=== PATIENT | male | born 1935 | race Two or more races ===

== ENCOUNTER 2020-03-11 15:30 | Inpatient (IN) | payer SELFPAY ==
[2020-03-11] VITALS: BP 129/65
[~2020-03-11] VITALS: Ht 165.1 cm; Wt 44.9 kg
[2020-03-11 15:36] VITALS: BP 117/80
--- NOTE | 2020-03-11 15:37 | Emergency Room Report ---
History of Present Illness General Chief Complaint: Syncope Source: EMS Present Illness HPI Disclaimer: Please note that this report is being documented using [employer] technology. This can lead to erroneous entry secondary to incorrect interpretation by the dictating instrument. HPI: 85-year-old male with unknown medical history presents for evaluation after syncopal episode. He arrives by EMS. History is limited as the person who witnessed the syncope was not on scene to provide information. Patient was reportedly found by first responders on the ground confused and hypotensive. He improved and mental status is now seemingly at baseline. He is able to tell me his name, age, location accurately. He states he does not take any medications has no complaints at this time. He denies headache, chest pain, palpitations, abdominal pain, recent vomiting, diarrhea fever chills or other changes in his health. He does not remember what happened today. He does not see a doctor regularly. PMH: Denies PSH: Denies Allergies: Denies Social Hx: Denies Allergies: Coded Allergies: No Known Allergies (Unverified , 03/11/20) COVID-19 Screening Contact w/high risk pt: No Experienced COVID-19 symptoms?: No COVID-19 Testing performed [employer]: No Nursing Documentation-PMH Past Medical History: No Stated History Review of Systems All Other Systems: negative except mentioned in HPI Physical Exam Vital Signs Date Time Temp Pulse Resp B/P (MAP) Pulse Ox O2 Delivery O2 Flow Rate FiO2 03/11/20 15:26 98.8 56 16 133/64 (87) 97 Room Air General: Awake and alert, no acute distress HEENT: NC/AT. No scalp or face hematomas, lacerations or abrasions. EOMI. visual acuity decreased bilaterally. Cardiovascular: Bradycardic. S1 and S2 normal. No murmur appreciated Resp: Normal work of breathing. No cough, wheezing or crackles appreciated Abdomen: Abdomen is soft, nondistended. Nontender Skin: Intact. No abrasions, laceration or rash over the exposed skin MSK: Normal tone and bulk. Moving all extremities. No obvious deformity. Neuro: Awake and alert. Mentating appropriately. Medical Decision Making Diagnostic Impression: Primary Impression: Syncope Additional Impressions: Anemia Hyperglycemia ER Course 85-year-old male with no reported medical history presents after a apparent syncopal episode at home. Differential also includes seizure, orthostatic hypotension, dehydration, ACS, arrhythmia, symptomatic bradycardia, head injury among others. EKG on arrival shows normal sinus rhythm without evidence of acute ischemia. He was initially bradycardic but this has improved. Pressures have been stable since arrival. Mentation returned to baseline. No injury identified on CT scan of the head. Chest x-ray shows normal cardiac silhouette no obvious infiltrate. Labs otherwise have returned within normal limits aside from anemia and elevation in blood glucose. She will be admitted for syncope work-up. Admitted to panel physician, Dr. Deng. Laboratory Tests Test 03/11/20 15:40 03/11/20 17:05 White Blood Count 7.2 K/UL (4.8-10.8) Red Blood Count 3.12 M/UL (4.70-6.10) L Hemoglobin 8.6 G/DL (14.2-18.0) L Hematocrit 27.1 % (42.0-52.0) L Mean Corpuscular Volume 87 FL (80-99) Mean Corpuscular Hemoglobin 27.7 PG (27.0-31.0) Mean Corpuscular Hemoglobin Concent 31.9 G/DL (32.0-36.0) L Red Cell Distribution Width 15.9 % (11.6-14.8) H Platelet Count 262 K/UL (150-450) Mean Platelet Volume 6.2 FL (6.5-10.1) L Neutrophils (%) (Auto) 72.7 % (45.0-75.0) Lymphocytes (%) (Auto) 20.7 % (20.0-45.0) Monocytes (%) (Auto) 4.6 % (1.0-10.0) Eosinophils (%) (Auto) 1.2 % (0.0-3.0) Basophils (%) (Auto) 0.8 % (0.0-2.0) Prothrombin Time 10.7 SEC (9.30-11.50) Prothrombin Time INR 1.0 (0.9-1.1) Activated Partial Thromboplast Time 21 SEC (23-33) L D-Dimer 0.48 mg/L FEU (0.00-0.49) Sodium Level 138 MMOL/L (136-145) Potassium Level 3.5 MMOL/L (3.5-5.1) Chloride Level 105 MMOL/L (98-107) Carbon Dioxide Level 25 MMOL/L (21-32) Anion Gap 8 mmol/L (5-15) Blood Urea Nitrogen 29 mg/dL (7-18) H Creatinine 1.1 MG/DL (0.55-1.30) Estimated Glomerular Filtration Rate > 60 mL/min (>60) Glucose Level 250 MG/DL (74-106) H Calcium Level 8.3 MG/DL (8.5-10.1) L Total Bilirubin 0.2 MG/DL (0.2-1.0) Aspartate Amino Transferase (AST) 23 U/L (15-37) Alanine Aminotransferase (ALT) 17 U/L (12-78) Alkaline Phosphatase 76 U/L (46-116) Total Creatine Kinase 133 U/L (26-308) Creatine Kinase MB 3.9 NG/ML (0.0-3.6) H Creatine Kinase MB Relative Index 2.9 Troponin I 0.008 ng/mL (0.000-0.056) Pro-B-Type Natriuretic Peptide 282 pg/mL (0-125) H Total Protein 6.4 G/DL (6.4-8.2) Albumin 2.9 G/DL (3.4-5.0) L Globulin 3.5 g/dL Albumin/Globulin Ratio 0.8 (1.0-2.7) L Lipase 100 U/L (73-393) Urine Color Pale yellow Urine Appearance Clear Urine pH 5 (4.5-8.0) Urine Specific [place] 1.020 (1.005-1.035) Urine Protein Negative (NEGATIVE) Urine Glucose (UA) 1+ (NEGATIVE) H Urine Ketones Negative (NEGATIVE) Urine Blood 2+ (NEGATIVE) H Urine Nitrite Negative (NEGATIVE) Urine Bilirubin Negative (NEGATIVE) Urine Urobilinogen Normal MG/DL (0.0-1.0) Urine Leukocyte Esterase Negative (NEGATIVE) Urine RBC 10-15 /HPF (0 - 0) H Urine WBC 0 /HPF (0 - 0) Urine Squamous Epithelial Cells Occasional /LPF Urine Bacteria Occasional /HPF (NONE) Urine Opiates Screen Negative (NEGATIVE) Urine Barbiturates Screen Negative (NEGATIVE) Phencyclidine (PCP) Screen Negative (NEGATIVE) Urine Amphetamines Screen Negative (NEGATIVE) Urine Benzodiazepines Screen Negative (NEGATIVE) Urine Cocaine Screen Negative (NEGATIVE) Urine Marijuana (THC) Screen Negative (NEGATIVE) EKG Diagnostic Results Troponin ordered: Yes When was troponin ordered?: Mar 11, 2020 EKG Time: 16:11 Rate: normal Rhythm: NSR ST Segments: no acute changes Other Impression Sinus rhythm, normal axis, normal intervals, no ST segment changes. Rhythm Strip Diag. Results Rhythm Strip Time: 16:11 EP Interpretation: yes Rate: 60s Rhythm: NSR, no PVC's, no ectopy Chest X-Ray Diagnostic Results Chest X-Ray Diagnostic Results : Chest X-Ray Ordered: Yes # of Views/Limited/Complete: 1 View Indication: Other - Syncope EP Interpretation: Yes Interpretation: no consolidation, no effusion, no pneumothorax, no acute cardiopulmonary disease Impression: No acute disease Electronically Signed by: Electronically signed by Dr. Jacek Calix MD Last Vital Signs Date Time Temp Pulse Resp B/P (MAP) Pulse Ox O2 Delivery O2 Flow Rate FiO2 03/11/20 15:26 98.8 56 16 133/64 (87) 97 Room Air Disposition: ADMITTED INPATIENT Condition: Stable Jacek Calix MD Mar 11, 2020 15:36
--- NOTE | 2020-03-11 16:34 | Diagnostic Imaging Report ---
Indications: Altered mental status Technique: Spiral acquisitions obtained through the brain. Angled axial and coronal 5 x 5 mm slices were reconstructed. Total dose length product 1018 mGycm. CTDI vol(s) 53 mGy. Dose reduction achieved using automated exposure control Comparison: None. Findings: No acute intracranial hemorrhage or edema, mass effect, nor midline shift. There is age-related enlargement of the ventricles and extra axial CSF spaces. There is periventricular deep white matter low-attenuation, consistent with chronic microvascular ischemic change. Unremarkable sinuses, mastoids, calvarium, orbits Impression: Chronic and age-related changes. Negative for acute intracranial bleed or mass effect The CT scanner at [facility] is accredited by the [employer] and the scans are performed using protocols designed to limit radiation exposure to as low as reasonably achievable to attain images of sufficient resolution adequate for diagnostic evaluation.
[2020-03-11 16:39] LABS: BASOPHILS % (AUTO) 0.8 % (0.0-2.0); EOSINOPHILS % (AUTO) 1.2 % (0.0-3.0); HEMATOCRIT 27.1 % (42.0-52.0); HEMOGLOBIN 8.6 G/DL (14.2-18.0); LYMPHOCYTES % (AUTO) 20.7 % (20.0-45.0); MEAN CORPUSCULAR VOLUME 87 FL (80-99); MONOCYTES % (AUTO) 4.6 % (1.0-10.0); NEUTROPHILS % (AUTO) 72.7 % (45.0-75.0); PLATELET COUNT 262 K/UL (150-450); RED BLOOD COUNT 3.12 M/UL (4.70-6.10); RED CELL DISTRIBUTION WIDTH 15.9 % (11.6-14.8); WHITE BLOOD COUNT 7.2 K/UL (4.8-10.8)
[2020-03-11 16:53] LABS: ANION GAP 8 mmol/L (5-15); BLOOD UREA NITROGEN 29 mg/dL (7-18); CALCIUM 8.3 MG/DL (8.5-10.1); CARBON DIOXIDE 25 MMOL/L (21-32); CHLORIDE 105 MMOL/L (98-107); CREATININE 1.1 MG/DL (0.55-1.30); POTASSIUM 3.5 MMOL/L (3.5-5.1); SODIUM 138 MMOL/L (136-145)
[2020-03-11 17:06] LABS: ALANINE AMINOTRANSFERASE 17 U/L (12-78); ALBUMIN 2.9 G/DL (3.4-5.0); ALBUMIN/GLOBULIN RATIO 0.8 (1.0-2.7); ALKALINE PHOSPHATASE 76 U/L (46-116); ASPARTATE AMINO TRANSFERASE 23 U/L (15-37); BILIRUBIN,TOTAL 0.2 MG/DL (0.2-1.0); CKMB 3.9 NG/ML (0.0-3.6); CREATINE KINASE 133 U/L (26-308)
[2020-03-11 17:30] VITALS: BP 129/84
[2020-03-11 18:09] LABS: APPEARANCE,URINE CLEAR; BILIRUBIN, URINE NEGATIVE (NEGATIVE); COLOR,URINE PALE YELLOW; GLUCOSE, URINE (UA) 1+ (NEGATIVE); KETONES,URINE NEGATIVE (NEGATIVE); LEUKOCYTE ESTERASE ,URINE NEGATIVE (NEGATIVE); NITRITE,URINE NEGATIVE (NEGATIVE); PH,URINE 5 (4.5-8.0); PROTEIN,URINE NEGATIVE (NEGATIVE); UROBILINOGEN,URINE NORMAL MG/DL (0.0-1.0)
--- NOTE | 2020-03-11 19:13 | Diagnostic Imaging Report ---
Indication: Chest pain Technique: One view of the chest Comparison: none Findings: Lungs and pleural spaces are clear. Heart size is normal. Impression: No acute process
[2020-03-11 19:25] VITALS: BP 192/80
[2020-03-11] MEDS ORDERED: LORazepam Inj 2mg/ml 1ml IV ONE (19:45)
[2020-03-11] MEDS ORDERED: LORazepam Inj 2mg/ml 1ml IV PRN (20:30)
[2020-03-11] MEDS ORDERED: NS w/KCl 20mEq 1000ml 1,000 ML IV SCH (22:00)
[2020-03-12] VITALS: BP 129/65
--- NOTE | 2020-03-12 03:00 | History and Physical Report ---
DATE OF ADMISSION: 03/11/2020 REASON FOR ADMISSION: Syncope. HISTORY OF PRESENT ILLNESS: This 85-year-old male, with no prior medical history known, was brought in by paramedics. He apparently had a witnessed syncopal episode in the field. He was found by first responders on the ground with confusion and low blood pressure noted by paramedics. He apparently improved following EMS interventions and was reported to be at baseline mentation in the emergency room. Subsequently, however, he became agitated and combative, wanting to leave apparently. He was given Ativan and is now sedated. Prior to the IV Ativan dose, he was alert and oriented to his name, age, and location. The patient denied any headache, chest pain, nausea, vomiting, abdominal pain, diarrhea, fevers, chills, or known COVID-19 exposures. PAST MEDICAL HISTORY: Otherwise unknown. MEDICATIONS: None. ALLERGIES: None. SOCIAL HISTORY: Denied smoking and alcohol abuse. REVIEW OF SYSTEMS: Not obtainable. PHYSICAL EXAMINATION: VITAL SIGNS: Afebrile, blood pressure 133/64, pulse 56, respirations 16, temporal wasting. LUNGS: Clear. CARDIAC: Regular rhythm. Slow rate. No murmur. Jugular venous pressure normal. Carotid upstrokes without delay. ABDOMEN: Soft. No focal tenderness. EXTREMITIES: No edema with decreased muscle tone. NEUROLOGIC: Nonfocal, presently sedated, however. LABORATORY DATA: White count 7.2, hemoglobin 8.6, MCV is 87. D-dimer normal. Chemistry panel within normal limits other than BUN 29, creatinine 1.1, glucose 215. Pro-natriuretic peptide 282. Albumin 2.9. Urinalysis with 10-15 red cells. Urine tox screen is negative. CAT scan of the brain with no acute process. EKG, sinus bradycardia with no acute abnormalities. IMPRESSION: 1. Syncope, likely vasovagal mediated. 2. Mild prerenal azotemia. 3. Hypovolemia. 4. Moderate protein-calorie malnutrition. 5. Component of dementia. 6. Chronic diastolic congestive heart failure based on elevated natriuretic peptide assay. 7. Normochromic, normocytic anemia. 8. Sinus bradycardia of no clinical significance at this time. PLAN: 1. Hydration. 2. Monitor for signs of GI blood loss. 3. Anemia panel. 4. Thyroid function. 5. Metabolic profile. 6. Physical therapy assessment. 7. Discharge planning to follow. 8. Continue cardiac monitoring to assess for hemodynamically significant arrhythmia. Lino Deng M.D. DR: RADHA JOB#: [id number] CC:
[2020-03-12 04:00] VITALS: BP 133/62
[2020-03-12] MEDS ORDERED: NovoLOG Insulin Flexpen SUBQ SCH ×2 (06:30)
[2020-03-12 07:16] LABS: BASOPHILS % (AUTO) 0.3 % (0.0-2.0); EOSINOPHILS % (AUTO) 0.4 % (0.0-3.0); HEMATOCRIT 29.5 % (42.0-52.0); HEMOGLOBIN 9.8 G/DL (14.2-18.0); LYMPHOCYTES % (AUTO) 12.3 % (20.0-45.0); MEAN CORPUSCULAR VOLUME 83 FL (80-99); PLATELET COUNT 281 K/UL (150-450); RED BLOOD COUNT 3.56 M/UL (4.70-6.10); RED CELL DISTRIBUTION WIDTH 16.9 % (11.6-14.8); WHITE BLOOD COUNT 10.6 K/UL (4.8-10.8)
[2020-03-12 08:00] VITALS: BP 138/93
[2020-03-12 08:17] LABS: ALANINE AMINOTRANSFERASE 31 U/L (12-78); ALBUMIN 3.3 G/DL (3.4-5.0); ALBUMIN/GLOBULIN RATIO 0.8 (1.0-2.7); ALKALINE PHOSPHATASE 91 U/L (46-116); ANION GAP 7 mmol/L (5-15); ASPARTATE AMINO TRANSFERASE 38 U/L (15-37); BLOOD UREA NITROGEN 16 mg/dL (7-18); CALCIUM 8.9 MG/DL (8.5-10.1); CARBON DIOXIDE 26 MMOL/L (21-32); CHLORIDE 106 MMOL/L (98-107); CREATININE 0.9 MG/DL (0.55-1.30); POTASSIUM 3.8 MMOL/L (3.5-5.1); SODIUM 139 MMOL/L (136-145)
[2020-03-12 08:30] LABS: BILIRUBIN,TOTAL 0.3 MG/DL (0.2-1.0)
[2020-03-12 08:32] LABS: % IRON SATURATION 12 % (15-50); IRON 49 ug/dL (50-175); TOTAL IRON BINDING CAPACITY 415 ug/dL (250-450)
--- NOTE | 2020-03-16 08:00 | Discharge Summary ---
Discharge Summary Discharge Summary _ DATE OF ADMISSION: 03/11/2020 DATE OF DISCHARGE: 03/12 DISCHARGED BY: Dr Deng REASON FOR ADMISSION: 84 years old male with unknown past medical history , was brought by paramedics due to weakness and syncopal episode in the field. He was found on the ground being confused and hypotensive. He improved following branch lending manager intervention He denied chest pain and shortness of breath . No nausea or vomiting. No headache . No abdominal pain or diarrhea No fever or chills . No known history of COVID-19 exposure. Laboratory work-up revealed no leukocytosis ,hemoglobin 8.6 ,hematocrit 27.1 ,platelet count 262. Albumin 3.3. Rapid COVID-19 was negative. Stable electrolytes. Glucose 250. BUN 29 creatinine 1.1 Stable LFT Troponin negative, pro BNP 282 Urinalysis revealed no evidence of urinary tract infection Urine toxicology screen was negative. CT of the head revealed no acute intracranial pathology ; chronic and age- related changes noted. Chest x-ray revealed no acute cardiopulmonary process. In emergency department patient received liter of fluid and admitted for further management. HOSPITAL COURSE: Patient admitted to telemetry floor . Repeated troponin was negative . EKG revealed no acute ischemic changes . Patient was ruled out for acute OH. Patient continued on IV hydration. Hemodynamic status was closely monitored. No evidence of GI bleeding. Fall precaution maintained . Patient was working with physical therapist. Cardiac monitoring continued and showed no evidence of significant arrhythmia. Thyroid function and folate stable . Patient demonstrated occasional sinus bradycardia in high 50s , bradycardia was not of any clinical significance . Hemoglobin and hematocrit were closely monitored with goal to keep hemoglobin above 7, prior to discharge hemoglobin 9.8, hematocrit 29.5. With IV hydration BUN from 29 down to 16 , creatinine remained stable . Patient remained hemodynamically stable . Patient clinically stabilized and was ready for discharge home follow-up with a primary care provider Hemoglobin A1c 6.7 Blood sugar was managed with sliding scale of insulin. Diabetic diet and diabetic teaching provided. Follow up with a primary care provider for further management of diabetes. Protein supplements provided as per registered dietitian recommendations. Due to rapid and unexpected improvement in patient condition , patient was discharged in 1 day. FINAL DIAGNOSES: Syncope likely vasovagally meditated Mild prerenal azotemia -resolved Hypovolemia Moderate protein calorie malnutrition Dementia CHF Normochromic normocytic anemia Sinus bradycardia (no signs of clinical significance at this joya) DISCHARGE MEDICATIONS: See Medication Reconciliation list. DISCHARGE INSTRUCTIONS: Patient was discharged home. Follow up with a primary care provider in 1 week. I have been assigned to dictate discharge summary for this account. I was not involved in the patient's management. Rosa Moreno NP Mar 16, 2020 08:00
== END 2020-03-12 11:33 | disposition home or self-care (01) | DRG 312 ==
LOC: EDBD 15:30 → EMR 15:55 → 2E 15:57 → EDBEDREQ 20:21
DX: R55 Syncope and collapse (principal); I50.32 Chronic diastolic (congestive) heart failure; E44.0 Moderate protein-calorie malnutrition; Z68.1 Body mass index [BMI] 19.9 or less, adult; I11.0 Hypertensive heart disease with heart failure; E86.1 Hypovolemia; F03.90 Unspecified dementia, unspecified severity, without behavioral disturbance, psychotic disturbance, mood disturbance, and anxiety; R00.1 Bradycardia, unspecified; D64.9 Anemia, unspecified
CPT/HCPCS: 36415; 70450; 71045; 80053; 80307; 81003; 82550; 82553; 82607; 82746; 82962; 83036; 83540; 83550; 83690; 83880; 84443; 84484; 85025; 85379; 85610; 85730; 93005; 96361; 96374; 99285; J1815; U0002